=== PATIENT | male | born 1970 | race African-American/Black ===

== ENCOUNTER 2023-01-02 11:47 | Emergency (ER) | payer OTHER ==
[~2023-01-02] VITALS: Ht 170.2 cm; Wt 72.7 kg
[~2023-01-02 11:47] MED LIST: ALBU8.5H8
[2023-01-02 11:48] VITALS: TEMP 99.1
[2023-01-02] MEDS ORDERED: SODIUM CHLORIDE 0.9% 1,000 ML IV ONE (12:30)
[2023-01-02] MEDS ORDERED: NICO4GUM35 PO (12:35)
[2023-01-02] MEDS ORDERED: FLUT1BLS11 IH (12:35)
[2023-01-02] MEDS ORDERED: IPRA4AER IH (12:35)
[2023-01-02] MEDS ORDERED: HYDROCODONE/ACETAMINOPHEN 5-325 MG TABLET PO ONE (13:00)
[2023-01-02 13:01] LABS: BASOPHILS % (AUTO) 0.6 % (0.0-2.0); HEMATOCRIT 42.1 % (41-53); HEMOGLOBIN 14.2 g/dL (13.5-17.5); LYMPHOCYTES # (AUTO) 1.9 K/uL (1.0-4.8); LYMPHOCYTES % (AUTO) 21.7 % (22.0-44.0); MEAN CORPUSCULAR HEMOGLOBIN 33.3 pg (26.0-34.0); MEAN CORPUSCULAR HGB CONC 33.8 G/dL (31.0-37.0); MEAN CORPUSCULAR VOLUME 99 fL (80-100); MONOCYTES # (AUTO) 0.5 K/uL (0.1-1.0); MONOCYTES % (AUTO) 6.4 % (2.0-9.0); NEUTROPHILS # (AUTO) 5.9 K/uL (1.8-7.7); NEUTROPHILS % (AUTO) 68.3 % (40.0-70.0); PLATELET COUNT (AUTO) 214 K/uL (150-450); RED BLOOD CELL COUNT(AUTO) 4.27 MIL/uL (4.50-5.90); RED CELL DISTRIBUTION WIDTH 12.9 % (11.5-14.5)
[2023-01-02 13:11] LABS: ANION GAP 8 mmol/L (8-16); CALCIUM, TOTAL 8.6 mg/dL (8.8-10.5); CARBON DIOXIDE 25 mmol/L (22-29); CHLORIDE 104 mmol/L (98-107); CREATININE 0.83 mg/dL (0.60-1.30); GLOMERULAR FILTR. RATE CALC > 60 mL/min (>60); GLUCOSE,RANDOM 99 mg/dL (70-110); POTASSIUM 3.7 mmol/L (3.5-5.1); SODIUM SERUM 137 mmol/L (136-145)
[2023-01-02 13:16] LABS: ALANINE AMINOTRANSFERASE 46 U/L (12-78); ALBUMIN 3.4 g/dL (3.4-5.0); ALKALINE PHOSPHATASE 68 U/L (46-116); ASPARTATE AMINOTRANSFERASE 40 U/L (15-37); BILIRUBIN,TOTAL 0.4 mg/dL (0.1-1.0); TOTAL PROTEIN, SERUM 6.8 g/dL (6.4-8.2)
[2023-01-02] MEDS ORDERED: TRAM-559 PO (14:30)
[2023-01-02] MEDS ORDERED: ONDANSETRON HCL 4 MG TABLET PO ONE (14:45)
[2023-01-02 15:42] VITALS: BP 117/65; PULSE 84; RESP 18
== END 2023-01-02 15:49 | disposition home or self-care (01) ==
LOC: EMS 11:51
DX: S37.30XA Unspecified injury of urethra, initial encounter (principal); J44.9 Chronic obstructive pulmonary disease, unspecified; F17.210 Nicotine dependence, cigarettes, uncomplicated; F12.90 Cannabis use, unspecified, uncomplicated; W20.8XXA Other cause of strike by thrown, projected or falling object, initial encounter; Y93.89 Activity, other specified; Y92.89 Other specified places as the place of occurrence of the external cause; Y99.8 Other external cause status
CPT/HCPCS: 99284; 74176; 96360; 80053; 85025; 36415; Q0162; J7030

== ENCOUNTER 2023-01-20 09:14 | Emergency (ER) | payer OTHER ==
[~2023-01-20] VITALS: Ht 170.2 cm; Wt 73.2 kg
[~2023-01-20 09:14] MED LIST changes: -ALBU8.5H8; +FLUT1BLS11 IH; +IPRA4AER IH; +NICO4GUM35 PO; +TRAM-559 PO
[2023-01-20 09:18] VITALS: TEMP 98
[2023-01-20] MEDS ORDERED: TAMSULOSIN HCL 0.4 MG CAPSULE PO ONE (10:00)
[2023-01-20 10:18] LABS: BASOPHILS % (AUTO) 1.6 % (0.0-2.0); EOSINOPHILS % (AUTO) 6.8 % (1.0-6.0); HEMOGLOBIN 13.9 g/dL (13.5-17.5); LYMPHOCYTES # (AUTO) 1.3 K/uL (1.0-4.8); LYMPHOCYTES % (AUTO) 50.8 % (22.0-44.0); MEAN CORPUSCULAR HEMOGLOBIN 33.3 pg (26.0-34.0); MEAN CORPUSCULAR HGB CONC 33.8 G/dL (31.0-37.0); MEAN CORPUSCULAR VOLUME 99 fL (80-100); MONOCYTES # (AUTO) 0.9 K/uL (0.1-1.0); MONOCYTES % (AUTO) 35.1 % (2.0-9.0); NEUTROPHILS # (AUTO) 0.1 K/uL (1.8-7.7); NEUTROPHILS % (AUTO) 5.7 % (40.0-70.0); PLATELET COUNT (AUTO) 394 K/uL (150-450); RED BLOOD CELL COUNT(AUTO) 4.16 MIL/uL (4.50-5.90); RED CELL DISTRIBUTION WIDTH 13.6 % (11.5-14.5)
[2023-01-20 10:32] LABS: ANION GAP 8 mmol/L (8-16); CALCIUM, TOTAL 9.2 mg/dL (8.8-10.5); CARBON DIOXIDE 24 mmol/L (22-29); CHLORIDE 103 mmol/L (98-107); CREATININE 0.97 mg/dL (0.60-1.30); GLOMERULAR FILTR. RATE CALC > 60 mL/min (>60); GLUCOSE,RANDOM 101 mg/dL (70-110); SODIUM SERUM 135 mmol/L (136-145)
[2023-01-20 10:38] LABS: ALANINE AMINOTRANSFERASE 32 U/L (12-78); ALBUMIN 3.8 g/dL (3.4-5.0); ALKALINE PHOSPHATASE 105 U/L (46-116); ASPARTATE AMINOTRANSFERASE 20 U/L (15-37); BILIRUBIN,TOTAL 0.4 mg/dL (0.1-1.0); TOTAL PROTEIN, SERUM 7.8 g/dL (6.4-8.2)
[2023-01-20] MEDS ORDERED: HYDROmorphone HCL 2 MG/ML SYRINGE IM ONE (10:45)
[2023-01-20 11:06] LABS: APPEARANCE,URINE HAZY (CLEAR); BILIRUBIN,URINE NEGATIVE (NEGATIVE); GLUCOSE, URINE (UA) NEGATIVE (NEGATIVE); KETONES,URINE NEGATIVE (NEGATIVE); LEUKOCYTE ESTERASE ,URINE LARGE (NEGATIVE); NITRATE,URINE NEGATIVE (NEGATIVE); OCCULT BLOOD,URINE MODERATE (NEGATIVE); PROTEIN,URINE 30-70 mg/dL (NEGATIVE); UROBILINOGEN,URINE <=1.0 mg/dL (<=1.0)
[2023-01-20 11:08] LABS: BACTERIA,URINE Moderate /HPF (None Seen)
[2023-01-20] MEDS ORDERED: LIDOCAINE 2% 6 ML JELLY TP ONE (12:00)
[2023-01-20] MEDS ORDERED: LIDOCAINE 1% 10 ML VIAL SQ ONE (13:45)
[2023-01-20 14:00] VITALS: BP 132/73; PULSE 76; RESP 18
[2023-01-20] MEDS ORDERED: CEPH-558 PO (14:14)
[2023-01-20] MEDS ORDERED: TAMS-1 PO (14:14)
[2023-01-20] MEDS ORDERED: CEPHALEXIN MONOHYDRATE 500 MG CAPSULE PO ONE (14:15)
== END 2023-01-20 14:58 | disposition home or self-care (01) ==
LOC: EMS 09:14
DX: N39.0 Urinary tract infection, site not specified (principal); R33.9 Retention of urine, unspecified; J44.9 Chronic obstructive pulmonary disease, unspecified; F17.210 Nicotine dependence, cigarettes, uncomplicated; F12.90 Cannabis use, unspecified, uncomplicated
CPT/HCPCS: 99284; 80053; 81001; 85025; 36415; 87086; 87186; 96372; J1170; J3490; Q9967; 51702

== ENCOUNTER 2023-03-11 12:25 | Emergency (ER) | payer OTHER ==
[~2023-03-11] VITALS: Ht 170.2 cm; Wt 75.0 kg
[~2023-03-11 12:25] MED LIST changes: +CEPH-558 PO; +TAMS-1 PO
[2023-03-11 12:29] VITALS: TEMP 98
[2023-03-11] MEDS ORDERED: CYCL10TA16 PO ×2 (12:31→12:36)
[2023-03-11] MEDS ORDERED: CYCLOBENZAPRINE HCL 10 MG TABLET PO ONE (13:00)
[2023-03-11 13:24] VITALS: BP 128/74; PULSE 80; RESP 18
== END 2023-03-11 13:25 | disposition home or self-care (01) ==
LOC: EMS 12:27
DX: N32.89 Other specified disorders of bladder (principal); J44.9 Chronic obstructive pulmonary disease, unspecified; F17.210 Nicotine dependence, cigarettes, uncomplicated; F12.90 Cannabis use, unspecified, uncomplicated; Z76.0 Encounter for issue of repeat prescription; Z98.890 Other specified postprocedural states
CPT/HCPCS: 99283

== ENCOUNTER 2023-12-13 09:52 | Emergency (ER) | payer OTHER ==
[~2023-12-13] VITALS: Ht 172.7 cm; Wt 72.7 kg
[~2023-12-13 09:52] MED LIST changes: +BENZ-227 PO; -CEPH-558 PO; +CIPR250T6 PO; +CYCL10TA16 PO; +GUAIF600 PO; +IBUP-1506 PO; -NICO4GUM35 PO; -TAMS-1 PO; -TRAM-559 PO
[2023-12-13 09:53] VITALS: TEMP 98.2
[2023-12-13] MEDS ORDERED: TIOT4MIS2 IH (09:56)
[2023-12-13] MEDS ORDERED: ALBU18HF12 IH (09:56)
[2023-12-13] MEDS ORDERED: FLUT1DIS6 PO (09:56)
[2023-12-13 11:55] VITALS: BP 120/70; PULSE 76; RESP 18
[2023-12-13] MEDS: CYCLOBENZAPRINE HCL 10 MG TABLET PO ONE (12:35)
[2023-12-13] MEDS: IBUPROFEN 600 MG TABLET PO ONE (12:35)
[2023-12-13] MEDS ORDERED: CYCL-448 PO (12:47)
[2023-12-13] MEDS ORDERED: IBUP-1492 PO (12:47)
[2023-12-17] MEDS ORDERED: ALBU18HF12 IH (10:51)
[2023-12-17] MEDS ORDERED: FLUT1BLS10 IH (10:51)
[2023-12-17] MEDS ORDERED: PRED-554 PO (10:51)
[2023-12-17] MEDS ORDERED: TIOT185 IH (10:51)
== END 2023-12-13 13:09 | disposition home or self-care (01) ==
LOC: EMS 09:52
DX: M54.50 Low back pain, unspecified (principal); F12.90 Cannabis use, unspecified, uncomplicated; F17.210 Nicotine dependence, cigarettes, uncomplicated
CPT/HCPCS: 99283; 99406

== ENCOUNTER 2024-02-22 04:04 | Emergency (ER) | payer OTHER ==
[~2024-02-22] VITALS: Ht 170.2 cm; Wt 71.8 kg
[~2024-02-22 04:04] MED LIST changes: +ALBU18HF12 IH; -BENZ-227 PO; -CIPR250T6 PO; +CYCL-448 PO; -CYCL10TA16 PO; +FLUT1BLS10 IH; -FLUT1BLS11 IH; -GUAIF600 PO; +IBUP-1492 PO; -IBUP-1506 PO; -IPRA4AER IH; +PRED-554 PO; +TIOT185 IH
[2024-02-22 04:37] VITALS: TEMP 98.2
[2024-02-22 06:43] VITALS: PULSE 89; RESP 20; O2SAT 97
[2024-02-22] MEDS: ALBUTEROL SULFATE 2.5 MG/0.5 ML NEB SOLUTION NEB ONE (06:43)
[2024-02-22] MEDS: IPRATROPIUM BROMIDE 0.5 MG/2.5 ML NEB SOLUTION NEB ONE (06:43)
[2024-02-22] MEDS: PredniSONE 20 MG TABLET PO ONE (06:54)
[2024-02-22 06:56] VITALS: BP 144/94; O2SAT 100
[2024-02-22] MEDS ORDERED: PRED-554 PO (06:56)
[2024-02-22] MEDS ORDERED: TIOT185 IH (06:56)
[2024-02-22] MEDS ORDERED: AZIT250T9 PO (06:56)
[2024-02-22] MEDS ORDERED: FLUT1BLS10 IH (06:56)
[2024-02-22 06:58] VITALS: PULSE 88; RESP 20; O2SAT 100
== END 2024-02-22 07:30 | disposition home or self-care (01) ==
LOC: EMS 04:04
DX: J44.9 Chronic obstructive pulmonary disease, unspecified (principal); F17.210 Nicotine dependence, cigarettes, uncomplicated; F12.90 Cannabis use, unspecified, uncomplicated; Z98.890 Other specified postprocedural states
CPT/HCPCS: 99283; 94640; J7512

== ENCOUNTER 2024-08-04 14:44 | Emergency (ER) | payer OTHER ==
[~2024-08-04] VITALS: Ht 170.2 cm; Wt 68.2 kg
[2024-08-04 14:51] VITALS: BP 100/70; PULSE 112; RESP 18; TEMP 98.8; O2SAT 99
[2024-08-04 15:29] LABS: COVID AG,FIA SOURCE NASAL SWAB
[2024-08-04] MEDS ORDERED: ALBU18HF12 IH (15:33)
[2024-08-04] MEDS ORDERED: TRI115O TP (15:33)
[2024-08-04] MEDS ORDERED: CETI10TA58 PO (15:33)
[2024-08-04] MEDS ORDERED: TAMS0.4C94 PO (15:33)
[2024-08-04] MEDS ORDERED: ATOR40TA71 PO (15:33)
[2024-08-04] MEDS ORDERED: GABA-1181 PO (15:33)
[2024-08-04] MEDS ORDERED: FLUT16H NASAL (15:33)
[2024-08-04 15:49] LABS: INFLUENZA TYPE A NEGATIVE FOR TYPE A (NEGATIVE); INFLUENZA TYPE B NEGATIVE FOR TYPE B (NEGATIVE); SARS-COV2 (COVID) ANTIGEN,FIA Negative (Negative)
[2024-08-04 16:16] LABS: BASOPHILS % (AUTO) 0.9 % (0.0-2.0); EOSINOPHILS % (AUTO) 0.4 % (1.0-6.0); HEMATOCRIT 45.5 % (41-53); HEMOGLOBIN 15.3 g/dL (13.5-17.5); LYMPHOCYTES # (AUTO) 2.2 K/uL (1.0-4.8); LYMPHOCYTES % (AUTO) 29.3 % (22.0-44.0); MEAN CORPUSCULAR HEMOGLOBIN 32.2 pg (26.0-34.0); MEAN CORPUSCULAR HGB CONC 33.7 G/dL (31.0-37.0); MEAN CORPUSCULAR VOLUME 96 fL (80-100); MONOCYTES # (AUTO) 0.9 K/uL (0.1-1.0); MONOCYTES % (AUTO) 12.1 % (2.0-9.0); NEUTROPHILS # (AUTO) 4.4 K/uL (1.8-7.7); NEUTROPHILS % (AUTO) 57.3 % (40.0-70.0); PLATELET COUNT (AUTO) 266 K/uL (150-450); RED BLOOD CELL COUNT(AUTO) 4.76 MIL/uL (4.50-5.90); RED CELL DISTRIBUTION WIDTH 13.2 % (11.5-14.5); WHITE BLOOD COUNT (AUTO) 7.6 K/uL (4.5-11.0)
[2024-08-04 16:25] LABS: ANION GAP 4 mmol/L (8-16); CALCIUM, TOTAL 8.8 mg/dL (8.8-10.5); CARBON DIOXIDE 32 mmol/L (22-29); CHLORIDE 103 mmol/L (98-107); CREATININE 1.06 mg/dL (0.60-1.30); GLOMERULAR FILTR. RATE CALC > 60 mL/min (>60); GLUCOSE,RANDOM 106 mg/dL (70-110); POTASSIUM 3.4 mmol/L (3.5-5.1); SODIUM SERUM 139 mmol/L (136-145); UREA NITROGEN, BLOOD 15 mg/dL (7-18)
[2024-08-04] MEDS: ClonazePAM 1 MG TABLET PO ONE (16:39)
[2024-08-04] MEDS ORDERED: ACET-66 PO (16:39)
[2024-08-04] MEDS ORDERED: GUAI100L96 PO (16:39)
[2024-08-04] MEDS: POTASSIUM CHLORIDE 20 MEQ ER TABLET PO ONE (16:39)
[2024-08-04] MEDS ORDERED: ONDA-104 PO (16:39)
[2024-08-04] MEDS ORDERED: CLON-595 PO (16:39)
== END 2024-08-04 16:57 | disposition home or self-care (01) ==
LOC: EMS 14:44
DX: J06.9 Acute upper respiratory infection, unspecified (principal); R09.81 Nasal congestion; R53.1 Weakness; F11.23 Opioid dependence with withdrawal; F12.90 Cannabis use, unspecified, uncomplicated; F17.210 Nicotine dependence, cigarettes, uncomplicated; Z79.52 Long term (current) use of systemic steroids; Z79.899 Other long term (current) drug therapy; Z20.822 Contact with and (suspected) exposure to COVID-19
CPT/HCPCS: 80048; 82271; 85025; 87804; 99283

== ENCOUNTER 2024-09-19 05:44 | Emergency (ER) | payer OTHER ==
[~2024-09-19] VITALS: Ht 172.7 cm; Wt 75.0 kg
[~2024-09-19 05:44] MED LIST changes: +ACET-66 PO; +ATOR40TA71 PO; +CETI10TA58 PO; +CLON-595 PO; -CYCL-448 PO; +FLUT16H NASAL; -FLUT1BLS10 IH; +GABA-1181 PO; +GUAI100L96 PO; -IBUP-1492 PO; +ONDA-104 PO; +TAMS0.4C94 PO; -TIOT185 IH; +TRI115O TP
[2024-09-19 06:07] VITALS: TEMP 98.4
[2024-09-19 08:18] VITALS: BP 118/74; PULSE 96; RESP 20; O2SAT 98
[2024-09-19] MEDS ORDERED: PRED-554 PO (08:53)
[2024-09-19] MEDS ORDERED: GUAI100L96 PO (08:53)
[2024-09-19] MEDS ORDERED: ALBU18HF12 IH (08:53)
[2024-09-19] MEDS ORDERED: AMOX500C2 PO (09:00)
== END 2024-09-19 09:10 | disposition home or self-care (01) ==
LOC: EMS 05:45
DX: J44.1 Chronic obstructive pulmonary disease with (acute) exacerbation (principal); J45.901 Unspecified asthma with (acute) exacerbation; J32.9 Chronic sinusitis, unspecified; F12.90 Cannabis use, unspecified, uncomplicated; F17.210 Nicotine dependence, cigarettes, uncomplicated; Z79.52 Long term (current) use of systemic steroids; Z79.899 Other long term (current) drug therapy
CPT/HCPCS: 99283; Z7502

== ENCOUNTER 2025-03-01 11:28 | Emergency (ER) | payer OTHER ==
[~2025-03-01] VITALS: Ht 175.3 cm; Wt 77.3 kg
[~2025-03-01 11:28] MED LIST changes: +AMOX500C2 PO
[2025-03-01] MEDS: PERTUSS(ACELL),DIPH,TET/PF 0.5 ML SYRINGE [ADULT] IM. ONE (12:37)
[2025-03-01 13:20] VITALS: BP 132/75; PULSE 72; RESP 18; TEMP 98.3; O2SAT 98
[2025-03-01] MEDS ORDERED: TAMS0.4C94 PO (13:49)
[2025-03-01] MEDS ORDERED: FLUT16H NASAL (13:49)
[2025-03-01] MEDS ORDERED: ALBU18HF12 IH (13:49)
[2025-03-01] MEDS ORDERED: FLUT1BLS7 IH (13:50)
[2025-03-01] MEDS ORDERED: TIOT185 IH ×2 (14:09→14:10)
== END 2025-03-01 14:37 | disposition home or self-care (01) ==
LOC: EMS 11:28
DX: S61.213A Laceration without foreign body of left middle finger without damage to nail, initial encounter (principal); J44.89 Other specified chronic obstructive pulmonary disease; F12.90 Cannabis use, unspecified, uncomplicated; F17.210 Nicotine dependence, cigarettes, uncomplicated; Z98.890 Other specified postprocedural states; Z76.0 Encounter for issue of repeat prescription; Z79.899 Other long term (current) drug therapy; W26.0XXA Contact with knife, initial encounter; Y93.89 Activity, other specified; Y92.89 Other specified places as the place of occurrence of the external cause; Y99.8 Other external cause status
CPT/HCPCS: 12001; 90471; 90715; 99283

== ENCOUNTER 2025-05-30 01:24 | Emergency (ER) | payer OTHER ==
[~2025-05-30] VITALS: Ht 172.7 cm; Wt 84.1 kg
[~2025-05-30 01:24] MED LIST changes: -ACET-66 PO; -AMOX500C2 PO; -CLON-595 PO; +FLUT1BLS7 IH; -GUAI100L96 PO; -ONDA-104 PO; -PRED-554 PO; +TIOT185 IH; -TRI115O TP
[2025-05-30 03:13] LABS: PLATELET COUNT (AUTO) 246 K/uL (150-450); RED BLOOD CELL COUNT(AUTO) 4.76 MIL/uL (4.50-5.90); RED CELL DISTRIBUTION WIDTH 13.3 % (11.5-14.5); WHITE BLOOD COUNT (AUTO) 7.6 K/uL (4.5-11.0)
[2025-05-30 03:22] LABS: CALCIUM, TOTAL 8.8 mg/dL (8.8-10.5); CREATININE 1.30 mg/dL (0.60-1.30); GLOMERULAR FILTR. RATE CALC > 60 mL/min (>60); GLUCOSE,RANDOM 81 mg/dL (70-110); SODIUM SERUM 141 mmol/L (136-145); UREA NITROGEN, BLOOD 19 mg/dL (7-18)
[2025-05-30 03:32] LABS: TROPONIN I-HIGH SENSITIVITY 7 ng/L (<76)
[2025-05-30 03:52] VITALS: TEMP 98.3
[2025-05-30] MEDS ORDERED: LEVO-72 PO (03:52)
[2025-05-30] MEDS ORDERED: METH4TAB3 PO (03:52)
[2025-05-30 03:57] VITALS: BP 138/105; PULSE 98; RESP 16; O2SAT 97
[2025-05-30] MEDS: DEXAMETHASONE SOD PHOS 4 MG/ML 5 ML VIAL IM ONE (04:19)
[2025-05-30] MEDS: IPRATROPIUM BROMIDE 0.5 MG/2.5 ML NEB SOLUTION NEB ONE (04:19)
[2025-05-30] MEDS: ALBUTEROL SULFATE 2.5 MG/0.5 ML NEB SOLUTION NEB ONE (04:19)
== END 2025-05-30 04:52 | disposition home or self-care (01) ==
LOC: EMS 01:25
DX: J44.9 Chronic obstructive pulmonary disease, unspecified (principal); F15.10 Other stimulant abuse, uncomplicated; F12.90 Cannabis use, unspecified, uncomplicated; F17.210 Nicotine dependence, cigarettes, uncomplicated; Z98.890 Other specified postprocedural states; Z79.51 Long term (current) use of inhaled steroids; Z79.899 Other long term (current) drug therapy
CPT/HCPCS: 99285; 71045; 80048; 83880; 84484; 85025; 36415; 94640; 93005; 96372; J1100; J7613